=== PATIENT | male | born 1975 | race Caucasian/White ===

== ENCOUNTER → 2016-10-09 | Outpatient (CLI) | payer MEDICAID ==
[~2016-10-09] MED LIST: CLONAZEPAM0.5 M1 PO; HYDROCHLOROTH12.5 M1 PO; MECLIZINE 25MG25 MG PO; NOMEDS; TORADOL10 MG PO; ZOFRAN4 MG PO
[2016-10-09 14:31] LABS: AMPHETAMINES/METAMPHETAMINES NEGATIVE ng/mL (<1000)
== END ==
LOC: LAB 13:20
PROVIDERS: Emergency Medicine
DX: Z79.899 Other long term (current) drug therapy (principal)